=== PATIENT | male | born 1985 | race Caucasian/White ===

== ENCOUNTER 2019-01-05 23:21 | Inpatient (IN) | payer BC ==
[~2019-01-05] VITALS: Ht 182.9 cm; Wt 164.9 kg
[2019-01-06] VITALS (7 sets, daily range): BP systolic 119–153; BP diastolic 63–92; PULSE 71–86; TEMP 98–98.4
[2019-01-06 03:28] LABS: BASO % 0.6 % (0.0-2.0); EOS # 0.2 (0.0-0.7); EOS % 3.2 % (0-4.0); GRAN # 4.3 (1.4-6.5); GRAN % 63.4 % (42.2-75.2); HEMATOCRIT 42.2 % (42.0-52.0); HEMOGLOBIN 14.5 g/dl (13.5-18.0); LYMPH # 1.4 (1.2-3.4); LYMPH % 19.8 % (20.0-51.0); MEAN CELL VOLUME 91 fl (80.0-100.0); MEAN CORPUSCULAR HEMOGLOBIN 31 pg (27.0-31.0); MEAN CORPUSCULAR HGB CONC 34 g/dl (33.0-37.0); MEAN PLATELET VOLUME 10.7 fl (7.4-10.4); MONO # 0.9 (0.1-0.6); MONO % 12.9 % (1.7-9.3); PLATELET COUNT 194 K/mm3 (130-400); RED BLOOD COUNT 4.64 M/mm3 (4.20-5.60); REDCELL DISTRIBUTION WIDTH-CV 12.4 % (11.5-14.5)
[2019-01-06 03:33] LABS: INR 1.1 (0.8-3.0); PROTHROMBIN TIME 12.5 SECONDS (9.7-12.8)
[2019-01-06 03:36] LABS: MUCOUS Present /lpf; PH 5 (5-8); SQUAMOUS EPITHELIAL 0-2 /hpf; URINE APPEARANCE Clear; URINE BACTERIA None Seen /hpf; URINE BILIRUBIN Positive (NEGATIVE); URINE BLOOD 1+ (NEGATIVE); URINE COLOR Amber; URINE GLUCOSE Negative (NEGATIVE); URINE KETONE 1+ (NEGATIVE); URINE LEUKOCYTE ESTERASE Negative (NEGATIVE); URINE NITRATE Negative (NEGATIVE); URINE PROTEIN(semi-quant) Negative (NEGATIVE); URINE UROBILINOGEN >=4.0 mg/dL (NEGATIVE)
[2019-01-06 03:38] LABS: COLLECTION METHOD CLEAN CATCH
[2019-01-06 03:39] LABS: ALBUMIN 3.8 gm/dL (3.5-5.0); BILIRUBIN,TOTAL 5.9 mg/dL (0.0-1.0); CALCIUM 8.9 mg/dL (8.4-10.2); CHOLESTEROL RISK RATIO 3.9; CREATININE, serum 0.87 (0.66-1.25); MAGNESIUM 2.1 mg/dL (1.6-2.3); POTASSIUM 3.8 mmol/L (3.4-5.0); TOTAL PROTEIN 7.1 gm/dL (6.4-8.2)
--- NOTE | 2019-01-06 06:35 | NUR ---
Dr Rod notified of surgical consult.
--- NOTE | 2019-01-06 10:13 | NUR ---
KENISHA met with Sameer and his Matilda to discuss a discharge plan. The pt lives in [place] with Matilda and their kids. The pt does not use DME and reports independence with ADLs. The pt's PCP is Dr. Limon and pt receives medications from [facility] in [place] with no difficulties. The pt does not have advanced directives in the EMR and was not interested in a DPOA-HC form. The pt plans to return home upon discharge with Matilda providing transportation. There are no additional needs at this time.
--- NOTE | 2019-01-06 11:26 | NUR ---
First visit from the moulder operator. No needs right now.
--- NOTE | 2019-01-06 18:30 | NUR ---
Patient did ok today. Minimal complaints of pain. Had some nausea this afternoon. Is feeling better since being allowed to eat clear liquids. He knows he can not eat or drink after midnight. No other changes at this time. Call light within reach.
[2019-01-07] VITALS (11 sets, daily range): BP systolic 135–158; BP diastolic 69–94; PULSE 73–91; TEMP 98.1–98.4
--- NOTE | 2019-01-07 01:01 | NUR ---
Patient complains of abdominal pain. PRN pain medication administered. States his urine is looking more yellow. Upon reassessment of pain, patient asleep with spouse at bedside. Patient denies any further needs. Will continue to monitor.
[2019-01-07 07:05] LABS: BASO % 0.6 % (0.0-2.0); EOS # 0.3 (0.0-0.7); EOS % 3.8 % (0-4.0); GRAN # 4.5 (1.4-6.5); GRAN % 62.2 % (42.2-75.2); HEMATOCRIT 41.9 % (42.0-52.0); HEMOGLOBIN 14.3 g/dl (13.5-18.0); LYMPH # 1.6 (1.2-3.4); LYMPH % 22.1 % (20.0-51.0); MEAN CELL VOLUME 92 fl (80.0-100.0); MEAN CORPUSCULAR HEMOGLOBIN 31 pg (27.0-31.0); MEAN CORPUSCULAR HGB CONC 34 g/dl (33.0-37.0); MEAN PLATELET VOLUME 11.1 fl (7.4-10.4); MONO # 0.8 (0.1-0.6); PLATELET COUNT 194 K/mm3 (130-400); RED BLOOD COUNT 4.56 M/mm3 (4.20-5.60); REDCELL DISTRIBUTION WIDTH-CV 12.3 % (11.5-14.5)
[2019-01-07 07:11] LABS: ALBUMIN 3.8 gm/dL (3.5-5.0); CALCIUM 8.9 mg/dL (8.4-10.2); CREATININE, serum 0.81 (0.66-1.25); MAGNESIUM 1.9 mg/dL (1.6-2.3); POTASSIUM 4.2 mmol/L (3.4-5.0); TOTAL PROTEIN 6.9 gm/dL (6.4-8.2)
--- NOTE | 2019-01-07 18:30 | NUR ---
Patient had his ERCP this afternoon. He has been doin well since returning. No increased pain, no nausea. His only complaint is of a headache and that his face and eyes are derik red. Explained that is most likely from the procedure. Patient verbalized understanding. He is tolerating the clear liquid diet well. No other changes at this time. Call light within reach. Patients family is at bedside. patient is aware he can not eat or drink after midnight.
--- NOTE | 2019-01-07 20:10 | NUR ---
Pt. sitting up in bed with at bedside. Pt. is A&OX3, assessment complete. IV to rt. forearm patent. Pt. tolerating clear liquids. Pt. reported a headache, order received for Tylenol and given. Pt. denies further needs, call light within reach.
[2019-01-08] VITALS (15 sets, daily range): BP systolic 109–151; BP diastolic 57–89; PULSE 65–94; TEMP 97.7–98.9
--- NOTE | 2019-01-08 06:05 | NUR ---
Pt. slept off and on through the night. Pt. remains A&OX3. IV to lt. forearm patent. Pt. denies further needs at this time.
[2019-01-08 06:33] LABS: GRAN # 6.8 (1.4-6.5); GRAN % 84.7 % (42.2-75.2); HEMATOCRIT 43.7 % (42.0-52.0); LYMPH # 0.8 (1.2-3.4); LYMPH % 9.6 % (20.0-51.0); MEAN CELL VOLUME 91 fl (80.0-100.0); MEAN CORPUSCULAR HEMOGLOBIN 31 pg (27.0-31.0); MEAN CORPUSCULAR HGB CONC 34 g/dl (33.0-37.0); MEAN PLATELET VOLUME 11.2 fl (7.4-10.4); MONO # 0.4 (0.1-0.6); MONO % 5.2 % (1.7-9.3); PLATELET COUNT 207 K/mm3 (130-400); RED BLOOD COUNT 4.83 M/mm3 (4.20-5.60); REDCELL DISTRIBUTION WIDTH-CV 11.8 % (11.5-14.5)
[2019-01-08 06:41] LABS: ALBUMIN 3.9 gm/dL (3.5-5.0); BILIRUBIN,TOTAL 1.3 mg/dL (0.0-1.0); CALCIUM 9.3 mg/dL (8.4-10.2); CREATININE, serum 0.77 (0.66-1.25); POTASSIUM 4.4 mmol/L (3.4-5.0); TOTAL PROTEIN 7.3 gm/dL (6.4-8.2)
--- NOTE | 2019-01-08 08:00 | NUR ---
PATIENT IS A&O. VSS. REPORTS MILD ABD DISCOMFORT. DENIES NEED FOR PAIN MEDS. PATIENT SCHEDULED FOR ZOFIA LATER TODAY. CUTTENTLY NPO. IV FLUIDS INFUSING INTO LEFT FORARM VIA PUMP. NO C/O N/V. CONSENT SIGNED AND ON CHART. AT BEDSIDE. HEAD TO TOE ASSESSMENT WNL. CALL LIGHT IN REACH.
--- NOTE | 2019-01-08 11:05 | NUR ---
PATIENT GOING DOWN TO OR VIA BED. AT BEDSIDE.
[2019-01-08] MEDS ORDERED: PRINIVIL10 MG PO (12:59)
--- NOTE | 2019-01-08 14:00 | NUR ---
PATIENT BACK IN ROOM 324 POST OP. ORIENTED BUT VERY DROWSY. PATIENT HAD A LOT OF PAIN IN PACU AND WAS GIVEN PAIN & NAUSEA MEDS. PATIENT NOW SLEEPING. ABDOMINAL LAP SITES X4 CD&I. ABDOMIN IS ROUND, SOFT AND WITH POSITIVE BOWL SOUNDS. HEAD TO TOE ASSESSMENT WNL. AT BEDSIDE. NO NEEDS.
--- NOTE | 2019-01-08 15:37 | NUR ---
appears to be sleeping, bedside shift report received from VENESSA Long
--- NOTE | 2019-01-08 16:30 | NUR ---
awake now, c/o having some discomfort but not bad, head of bed up per patient's request,
--- NOTE | 2019-01-08 17:02 | NUR ---
continues to appear to sleep
--- NOTE | 2019-01-08 17:56 | NUR ---
Theresa and asking about having something to eat, instructed he can have a general diet and verbalizes understanding, will order something to eat
--- NOTE | 2019-01-08 18:15 | NUR ---
sitting up in bed to eat supper, c/o pain and medicated with hydrocodone 5mg 1 tab
--- NOTE | 2019-01-08 18:45 | NUR ---
bedside shift report given to VENESSA Bailon
--- NOTE | 2019-01-08 21:45 | NUR ---
Patient up to void, then ambulated around the surgical unit with supervision. Is steady on his feet. IV site to left AC saline locked as well as second site to left FA.
--- NOTE | 2019-01-08 22:00 | NUR ---
Medicated with [place] 5/325mg 1 tab at this time for pain 02/04. Lap sites to abdomen x4 glued and dry. No flatus.
--- NOTE | 2019-01-08 22:45 | NUR ---
Second [place] given for continued abdominal pain.
--- NOTE | 2019-01-09 03:00 | NUR ---
Up to void, no concerns offered at this time.
[2019-01-09 04:00] VITALS: BP 136/68; PULSE 66; TEMP 98.5
--- NOTE | 2019-01-09 05:45 | NUR ---
NORCO 1 TAB PO NOW FOR PAIN 01/04.
--- NOTE | 2019-01-09 06:30 | NUR ---
REPEATED SECOND NORCO FOR CONTINUED PAIN.
[2019-01-09 07:51] VITALS: BP 141/84; PULSE 80; TEMP 97.9
[2019-01-09 11:29] VITALS: BP 129/71; PULSE 89; TEMP 97.8
--- NOTE | 2019-01-09 15:20 | NUR ---
patient discharging home with family. DCd IV to left AC and L forearm. gave discharge instructions, prescriptions, and followup appointments. patient discharged.
[2019-01-09 15:31] VITALS: BP 126/54; PULSE 100; TEMP 97.8
== END 2019-01-09 15:20 | disposition home or self-care (01) | DRG 418 ==
LOC: SURG 23:21
PROVIDERS: Nurse Practitioner Family; Surgery; ADMIT Student in an Organized Health Care Education/Training Program
PROC: 8E0W4CZ Robotic Assisted Procedure of Trunk Region, Percutaneous Endoscopic Approach (ICD-10-PCS; 2019-01-08)
PROC: 0FT44ZZ Resection of Gallbladder, Percutaneous Endoscopic Approach (ICD-10-PCS; principal; 2019-01-08 12:15)
DX: K85.10 Biliary acute pancreatitis without necrosis or infection (principal); K80.51 Calculus of bile duct without cholangitis or cholecystitis with obstruction; F17.210 Nicotine dependence, cigarettes, uncomplicated; E66.01 Morbid (severe) obesity due to excess calories; F41.9 Anxiety disorder, unspecified; I10 Essential (primary) hypertension; K59.00 Constipation, unspecified; Z88.8 Allergy status to other drugs, medicaments and biological substances; Z88.1 Allergy status to other antibiotic agents; Z77.29 Contact with and (suspected) exposure to other hazardous substances; K21.9 Gastro-esophageal reflux disease without esophagitis
CPT/HCPCS: 99222-AI; 99231-AI; 99239; C1769; J0330; J1100; J1170; J1650; J1885; J2060; J2405; J2550; J2704; J3010; J7030; J7120; Q9967